=== PATIENT | male | born 1980 | race Caucasian/White ===

== ENCOUNTER 2020-06-11 01:34 | Emergency (ER) | payer OTHER, SELFPAY ==
[2020-06-11 01:55] VITALS: BP 160/90; PULSE 114; RESP 16; TEMP 36.8; O2SAT 95; BMI 27.9
[2020-06-11 02:00] VITALS: BP 160/90; PULSE 116; RESP 18; TEMP 36.8; O2SAT 96
--- NOTE | 2020-06-11 02:43 | CT_ITS ---
EXAMINATION: CT HEAD WITHOUT CONTRAST CLINICAL INFORMATION: Headache COMPARISON: None TECHNIQUE: Contiguous axial imaging was performed from the skull base to vertex without intravenous administration of contrast. This CT examination was performed using dose optimization techniques as appropriate, variously including the following: *Automated exposure control *Adjustment of mA and/or kV according to patient size (this includes techniques or standardized protocols for targeted exams where dose is matched to indication/reason for exam; i.e. extremities or head) *Use of iterative reconstruction technique DLP: 747 mGy-cm FINDINGS: There is no evidence of acute intracranial hemorrhage or territorial infarction. No abnormal mass effect or midline shift is seen. [place] to white matter differentiation is well preserved. No extra-axial fluid collections are identified. The ventricles are normal in size. There is no abnormal attenuation within the brain parenchyma. The osseous structures and soft tissues are normal. The mastoid air cells and visualized portions of the paranasal sinuses are well aerated. CT/CT head/brain wo con IMPRESSION: No acute intracranial pathology.
[2020-06-11] MEDS: ondansetron HCL 4 MG/2 ML VIAL IVPUSH (03:28)
[2020-06-11] MEDS: 0.9 % Sodium Chloride 500 ML 1000 ML IV (03:29)
[2020-06-11 03:30] VITALS: BP 135/72; PULSE 97; RESP 18; TEMP 37.3; O2SAT 93
[2020-06-11 03:39] LABS: MANUAL DIFF FLAG NO
[2020-06-11 03:40] LABS: Basophils Absolute Auto 0.1 X10*3/uL (0.0-0.2); Basophils Percent Auto 0.6 % (0-2); Eosinophils Absolute Auto 0.2 X10*3/uL (0.0-0.4); Eosinophils Percent Auto 1.9 % (0-4); Hemoglobin 15.2 g/dl (14.0-18.0); Imm Gran Abs Auto 0.06 X10*3/uL (0.00-0.03); Imm Gran Pct Auto 0.6 % (0.0-0.4); Lymphocytes Absolute Auto 3.3 X10*3/uL (1.2-4.9); Lymphocytes Percent Auto 31.5 % (20-40); Mean Corpuscular HGB Conc 33.8 g/dl (31.0-36.0); Mean Corpuscular Hemoglobin 29.7 pg (27.0-33.0); Mean Corpuscular Volume 87.9 fL (80-98); Mean Platelet Volume 9.3 fL (9.4-12.4); Monocytes Absolute Auto 0.9 X10*3/uL (0.1-1.2); Monocytes Percent Auto 8.4 % (2-11); Neutrophils Absolute Auto 5.9 X10*3/uL (2.0-8.3); Platelet Count 278 X10*3/uL (160-400); Red Blood Count 5.12 X10*6/uL (4.60-5.80); Red Cell Distribution Width 13.1 % (11.0-16.0); White Blood Count 10.4 X10*3/uL (4.8-10.8)
[2020-06-11 04:23] LABS: Anion Gap 15 (12-20); Blood Urea Nitrogen 13 mg/dL (9-16); Calcium 9.1 mg/dL (8.4-10.2); Carbon Dioxide 24 mmol/L (22-29); Chloride 104 mmol/L (96-108); Creatinine Clr Calc Pharmacy 102.7; Estimated Glomerular Filt Rate > 60; Glucose Random 100 mg/dL (60-115); Potassium 4.4 mmol/l (3.3-5.1); Sodium 139 mmol/L (135-145)
--- NOTE | 2020-06-11 05:21 | ED_ITS ---
HPI - Headache General Chief Complaint: Headache Stated Complaint: HEAD PAIN Time Seen by Provider: 06/11/20 02:43 Source: patient Mode of arrival: ambulatory Limitations: no limitations History of Present Illness HPI Narrative: headache for 2 days, mild nausea, mild dizziness headache is localized into the right side of the head, feel like something popping in right side of the head, described it as 5/10, no photophobia, no neck pain, mild dizziness sometimes, pain is relieved with Tylenol, worsen was watching TV. Patient is intermittent. Related Data Home Medications Medication Instructions Recorded Confirmed No Known Home Meds 06/11/20 06/11/20 Allergies Allergy/AdvReac Type Severity Reaction Status Date / Time No Known Allergies Allergy Mild NONE Verified 06/11/20 02:07 Review of Systems Review of Systems: All other systems are reviewed and are negative Constitutional: Reports as per HPI and Reports no additional constitutional complaints Eyes: Reports as per HPI and Reports no additional eye complaints Reports system reviewed and no additional complaints, except as documented Cardiovascular: Reports as per HPI and Reports no additional cardiovascular complaints Respiratory: Reports as per HPI and Reports no additional respiratory complaints Gastrointestinal: Reports as per HPI and Reports no additional gastrointestinal complaints Genitourinary: Reports no additional female genitourinary complaints Musculoskeletal: Reports no additional musculoskeletal complaints Skin/Breast: Reports system reviewed and no additional complaints, except as docu Psychiatric: Reports no additional psychiatric complaints Endocrine: Reports no additional endocrine complaints Hematologic/Lymphatic: Reports no additional hematologic/lymphatic complaints Allergic/Immunologic: Reports no additional allergic/immunologic complaints Reports system reviewed and no additional complaints, except as documented and Reports Abnormal speech present [facility] Past Medical History Medical History No known health problems Social History Social History Alcohol intake: never Smoked in Last 30 Days: No Use of substances other than those prescribed or required for medical reasons: No Advance Directives: No Advance Directives Information Provided: No Physical Exam Vital Signs: Vital Signs: Vital Signs Temp Pulse Resp BP Pulse Ox 06/11/20 03:30 99.1 F 97 18 135/72 93 06/11/20 02:00 98.3 F 116 H 18 160/90 H 96 06/11/20 01:55 98.3 F 114 H 16 160/90 H 95 Body Mass Index 27.9 vital signs have been reviewed as normal and appeared to be correct. hypertensive. Heart rate normal. Respiration rate normal. Temperature normal. Oxygen saturation normal. Appearance: Alert. Oriented X3. No acute distress. Head: Normal external exam. Normocephalic. Atraumatic. No Watson signs noted. No raccoon eyes noted Eyes: PERRLA. EOMI. Conjunctiva and sclera normal. Eyelids normal. ENT: EAC normal. TM's Normal. Pharynx normal. Uvula midline. Moist mucous membranes. No trismus noted. No drooling noted. No muffled voice noted. Neck: Normal inspection. Neck supple. FROM. No adenopathy. Thyroid Normal. No meningeal signs. No neck mass noted. CVS: Normal heart rate and rhythm. Heart sound normal. No murmurs noted. Pulses normal throughout. Respiratory: No respiratory distress. Painless inspiration. Breath sounds normal. No wheezes/rales/rhonchi noted. Chest nontender. No accessory muscle usage noted or decreased air movement noted. Abdomen: Soft and nontender. Bowel sounds normal in all 4 quadrants. No distention noted. No organomegaly noted. No visible injury noted. Back: No CVA tenderness. Full range of motion noted. Skin: Skin warm and dry. Normal skin color. Normal skin turgor. No rashes/lesions/lacerations noted. Extremities: No lower extremity edema. Extremities exhibit normal range of motion. Extremities nontender. Neuro: Oriented X 3. No motor deficit. No sensory deficit. Reflexes normal. MDM - Headache MDM Narrative Medical decision making narrative: Assessment and plan. 39 years old male otherwise healthy presented with 2 days of right-sided headache, patient emergency department had CT head, IV fluid, Zofran and Tylenol, which relieved the headache patient has 0/10 headache now. Lab Data Attestation: I reviewed the patient's lab results. Result diagrams: 06/11/20 03:26 06/11/20 03:26 Labs: Lab Results 06/11/20 06/11/20 Range/Units 03:26 03:26 WBC 10.4 (4.8-10.8) X10*3/uL RBC 5.12 (4.60-5.80) X10*6/uL Hgb 15.2 (14.0-18.0) g/dl Hct 45.0 (42-52) % MCV 87.9 (80-98) fL MCH 29.7 (27.0-33.0) pg MCHC 33.8 (31.0-36.0) g/dl RDW 13.1 (11.0-16.0) % Plt Count 278 (160-400) X10*3/uL MPV 9.3 L (9.4-12.4) fL Immature Gran % (Auto) 0.6 H (0.0-0.4) % Neut % (Auto) 57.0 (45-73) % Lymph % (Auto) 31.5 (20-40) % [place] % (Auto) 8.4 (2-11) % Eos % (Auto) 1.9 (0-4) % Baso % (Auto) 0.6 (0-2) % Lymph # (Auto) 3.3 (1.2-4.9) X10*3/uL [place] # (Auto) 0.9 (0.1-1.2) X10*3/uL Eos # (Auto) 0.2 (0.0-0.4) X10*3/uL Baso # (Auto) 0.1 (0.0-0.2) X10*3/uL Abs Immat Gran (auto) 0.06 H (0.00-0.03) X10*3/uL Absolute Neuts (auto) 5.9 (2.0-8.3) X10*3/uL Absolute Nucleated RBC 0.000 (0.0-0.012) X10*3/uL Nucleated RBC % (auto) 0.0 (0.0-0.2) /100WBC Sodium 139 (135-145) mmol/L Potassium 4.4 (3.3-5.1) mmol/l Chloride 104 (96-108) mmol/L Carbon Dioxide 24 (22-29) mmol/L Anion Gap 15 (12-20) BUN 13 (9-16) mg/dL Creatinine 1.07 (0.5-1.4) mg/dL Estim Creat Clear Calc 102.7 Estimated GFR > 60 Random Glucose 100 (60-115) mg/dL Calcium 9.1 (8.4-10.2) mg/dL Imaging Data CT scan - head: Radiologist's impression: Unremarkable CT. Discharge Plan Discharge Clinical Impression: Headache Patient Disposition: Home, Self-Care Instructions: Acute Headache (ED) Prescriptions: No Action No Known Home Meds RF: 0 Referrals: Heather Aleman DO [Primary Care Provider] - 2 days Mendy Thorpe MD [Physician] - 2 days
[2020-06-11 05:33] VITALS: BP 131/91; PULSE 93; RESP 18; TEMP 36.3; O2SAT 95
[2020-06-11] MEDS: Acetaminophen 325 MG TABLET 650 MG PO (05:34)
== END 2020-06-11 05:40 | disposition home or self-care (01) ==
PROVIDERS: Emergency Provider Emergency Medicine; PCP Family Medicine
DX: R51.9 Headache, unspecified (principal); R42 Dizziness and giddiness
CPT/HCPCS: 36415; 70450; 80048; 85025; 99284; J2405

== ENCOUNTER 2021-03-29 09:22 | Outpatient (REF) | payer OTHER, SELFPAY ==
--- NOTE | 2021-03-29 09:30 | EMG_ITS ---
This is a 40-year-old man with history of bilateral neck and shoulder pain, sometimes radiating into the forearms with no history of neck injury. He has no other medical problems and takes no medications. PHYSICAL EXAMINATION: On examination, he is alert and oriented with normal intellectual functions. Cranial nerves II through XII are normal. Muscle tone and strength are normal in all 4 extremities. Deep tendon reflexes symmetrical. IMPRESSION: Rule out cervical radiculopathy. Nerve conduction EMG study: Normal electrodiagnostic study of both upper extremities with no evidence of carpal tunnel syndrome or nerve entrapment. EMG of the right C5-T1 innervated muscles including right cervical paraspinal muscles is suggestive of mild chronic cervical radiculopathy in the mid to lower cervical spine. Cervical spine x-ray and MRI of the cervical spine are suggested. MD GRETA Prieto/ABA / [id number]
== END 2021-03-29 09:23 | disposition home or self-care (01) ==
LOC: HO.NEURO 09:22
PROVIDERS: PCP Family Medicine; Visit Provider Family Medicine
DX: M54.2 Cervicalgia (principal)
CPT/HCPCS: 95886; 95913

== ENCOUNTER 2021-04-27 09:37 | Outpatient (REF) | payer OTHER, SELFPAY ==
--- NOTE | ~2021-04-27 | MR_ITS ---
EXAMINATION: MR CERVICAL SPINE WITHOUT CONTRAST CLINICAL INFORMATION: Cervical radiculopathy. Neck pain with right arm pain, numbness, finger numbness or weakness. COMPARISON: None TECHNIQUE: MRI of the cervical spine was obtained using routine sequences without contrast. FINDINGS: VERTEBRAL BODIES AND PARASPINAL SOFT TISSUES: Normal vertebral body alignment. The cervical lordosis is maintained. No acute fracture or subluxation. No loss of vertebral body or intervertebral disc height. The intervertebral discs are well hydrated. No abnormal marrow signal. No evidence of acute osseous injury. No abnormal signal within the visualized cord. The visualized paraspinal soft tissues are unremarkable. CERVICOMEDULLARY JUNCTION AND VISUALIZED POSTERIOR FOSSA: Unremarkable. SPINAL LEVELS: C2-C3: No significant disc bulge. No central canal or neural foraminal stenosis. C3-C4: Small posterior central disc protrusion which completely effaces the ventral thecal sac. Left-sided uncinate spurring with minimal left neural foraminal stenosis. C4-C5: Broad-based disc-osteophyte complex with bilateral uncinate spurring causing minimal left neural foraminal stenosis. C5-C6: Minimal posterior central disc protrusion which partially effaces the ventral thecal sac. No significant neural foraminal stenosis. C6-C7: Right paracentral disc protrusion with posterior annular fissuring which completely effaces the ventral thecal sac. Left-sided uncinate spurring with minimal left neural foraminal stenosis. C7-T1: No significant disc bulge. Left-sided facet arthropathy. No central canal or neural foraminal stenosis. T1-T2: Mild broad-based disc bulge with a superimposed right paracentral disc protrusion which completely effaces the ventral thecal sac and minimally indents the adjacent cord. No significant neural foraminal stenosis. MR/MR cervical spine wo con IMPRESSION: 1. Right paracentral disc protrusion at C6-C7 with posterior annular fissuring which completely effaces the ventral thecal sac. Left-sided uncinate spurring with minimal left neural foraminal stenosis. 2. Mild broad-based disc bulge at T1-T2 with a superimposed right paracentral disc protrusion which completely effaces the ventral thecal sac and minimally indents the adjacent cord. No significant neural foraminal stenosis. 3. Small posterior central disc protrusion at C3-C4 which completely effaces the ventral thecal sac. Left-sided uncinate spurring with minimal left neural foraminal stenosis. 4. Broad-based disc-osteophyte complex at C4-C5 with bilateral uncinate spurring causing minimal left neural foraminal stenosis. 5. Minimal posterior central disc protrusion at C5-C6 which partially effaces the ventral thecal sac. No significant neural foraminal stenosis.
== END 2021-04-27 09:38 | disposition home or self-care (01) ==
LOC: HO.MRI 09:37
PROVIDERS: PCP Family Medicine; Visit Provider Family Medicine
DX: M54.12 Radiculopathy, cervical region (principal)
CPT/HCPCS: 72141

== ENCOUNTER 2021-05-31 12:47 | Emergency (ER) | payer OTHER, SELFPAY ==
--- NOTE | 2021-05-31 | ECG_ITS ---
Test Reason : SYNCOPY Blood Pressure : / mmHG Vent. Rate : 087 BPM Atrial Rate : 087 BPM P-R Int : 170 ms QRS Dur : 082 ms QT Int : 348 ms P-R-T Axes : 033 033 004 degrees QTc Int : 418 ms Normal sinus rhythm Normal ECG When compared with ECG of 31-MAY-2021 14:09, No significant change was found Referred By: Rio oSl Electronically Signed By:HARINDER PACHECO MD
[2021-05-31 13:18] VITALS: BP 110/90; BP 126/84; PULSE 73; PULSE 80; RESP 18; TEMP 36.1; O2SAT 96; O2SAT 99; BMI 27.9
== END 2021-05-31 14:54 | disposition left against medical advice (07) ==
PROVIDERS: Emergency Provider Emergency Medicine
DX: R55 Syncope and collapse (principal); R06.02 Shortness of breath
CPT/HCPCS: 93005; 99283

== ENCOUNTER 2021-08-21 10:15 | Emergency (ER) | payer OTHER, SELFPAY ==
--- NOTE | ~2021-08-21 | XR_ITS ---
EXAMINATION: XR CHEST CLINICAL INFORMATION: Cough and fever COMPARISON: Chest x-ray 08/08/2017 TECHNIQUE: Frontal view of the chest was obtained. FINDINGS: No significant abnormality is noted involving the heart, lungs, mediastinum, bony thorax or soft tissues. XR/XR chest 1V IMPRESSION: Unremarkable chest examination. No change from 2017.
[2021-08-21 10:58] VITALS: BP 128/93; PULSE 93; RESP 18; O2SAT 96; BMI 28.4
[2021-08-21 11:18] LABS: COVID-19 Test Positive (Negative)
--- NOTE | 2021-08-21 11:51 | ED.URI ---
HPI - URI/Sore Throat General Chief Complaint: Upper Respiratory Symptoms Stated Complaint: cough, fever, nausea Time Seen by Provider: 08/21/21 11:45 Source: patient Mode of arrival: ambulatory Limitations: no limitations History of Present Illness MD elicited complaint: cough, sore throat and rhinorrhea Pertinent past history: other (vaccinated x 2) Onset (ago): day(s) (5 days) Consistency: constant Severity: mild Description of mucous: clear Able to tolerate fluids by mouth: Yes Exacerbating factors: swallowing Relieving factors: nothing Associated symptoms: rhinorrhea, sore throat and cough Treatments prior to arrival: none Related Data Home Medications Medication Instructions Recorded Confirmed No Known Home Meds 06/11/20 06/11/20 Allergies Allergy/AdvReac Type Severity Reaction Status Date / Time No Known Allergies Allergy Mild NONE Verified 05/31/21 13:18 Review of Systems Review of Systems: Constitutional : no Fever, positive Chills, positive fatigue, positive Malaise ENT/Mouth : positive sore throat, positive runny nose Eyes: No Discharge Cardiovascular : No Chest Pain, No SOB Respiratory : pos Cough, No Sputum Gastrointestinal : No Nausea, No Vomiting, No Diarrhea Genitourinary : No Dysuria, No Urinary Frequency Musculoskeletal : positive Myalgia Skin : No rash Neuro : No Headache PMFSH Past Medical History Attestation statement: The following information was validated with the patient. Medical History No known health problems Social History Social History Alcohol intake: never Patient Tobacco Use Status: Never used Tobacco Advance Directives: No Advance Directives Information Provided: No Physical Exam Vital Signs: Vital Signs: Last Vital Signs Pulse 93 08/21/21 10:58 Resp 18 08/21/21 10:58 BP 128/93 H 08/21/21 10:58 Pulse Ox 96 08/21/21 10:58 BMI result Body Mass Index 28.4 Appearance: Alert. Oriented X3. No acute distress. Eyes: Pupils equal, round and reactive to light. ENT: Pharynx normal - no redness, no exudates, uvula midline Neck: Normal inspection. Neck supple. CVS: Normal heart rate and rhythm. Pulses normal. Respiratory: No respiratory distress. Breath sounds normal. Abdomen: Soft and non-tender. Skin: Skin warm and dry. Normal skin color. Extremities: No lower extremity edema. Neuro: Oriented X 3. No motor deficit. No sensory deficit. Course Course Course Narrative: vaccinated x 2, no medical problems would not require Mab at this time given [facility] stating lack of supplies MDM - URI/Sore Throat MDM Narrative Medical decision making narrative: 41 yo male no PMH here with vaccine x 2 c/o sore throat and cough x 2 days he is not toxic, clear lungs 96% on RA. His throat appears normal no signs of GAS pharyngitis or deeper space infection at this time likely COVID will test and send home with precautions. Lab Data Labs: Lab Results 08/21/21 Range/Units 11:03 COVID-19 (JESSIKA) Positive A (Negative) COVID-19 Clin Com See Note Discharge Plan Discharge Clinical Impression: COVID-19 Patient Disposition: Home, Self-Care Instructions: COVID-19 (Coronavirus Disease 2019) (ED) Additional Instructions: return to ED for any worsening symptoms or concerns monitor your breathing if you are so short of breath you cannot walk to your bathroom please seek medical care quarantine, wear a mask, protect others Prescriptions: No Action No Known Home Meds RF: 0 Stand Alone Forms: Work/School Release
--- NOTE | 2021-08-21 12:49 | PC.NURSE ---
PT EVALUATED BY DR CHAVES. PT AWAKE, ALERT AND ORIENTED X 3. SKIN WARM AND DRY. RESP UNLABORED. DENIES N/V. TALKING ON PHONE. NO ACUTE DISTRESS.
== END 2021-08-21 12:51 | disposition home or self-care (01) ==
PROVIDERS: Emergency Provider Emergency Medicine; PCP Family Medicine
DX: U07.1 COVID-19 (principal)
CPT/HCPCS: 36415; 71045; 87635; 99282; 99283

== ENCOUNTER 2021-10-05 08:59 | Emergency (ER) | payer OTHER, SELFPAY ==
--- NOTE | ~2021-10-05 | CT_ITS ---
EXAMINATION: CT BRAIN, CT LUMBAR SPINE AND CT CERVICAL SPINE. CLINICAL INFORMATION: Fall and hit head: COMPARISON: None TECHNIQUE: Axial 5 mm thin sagittal and coronal reformatted 2 mm thin coronal and sagittal images of brain were obtained. 3 m thin and reformatted 2 mm thin sagittal coronal images of cervical spine were obtained. Lastly 2 mm thin axial and reformatted 2 mm thin sagittal and coronal images of lumbar spine were obtained. DLP 2141 FINDINGS: BRAIN: There is no acute intra-axial, extra-axial bleed, masses or midline shift. There is no acute infarction in evolution. There is no edema. The brush to white matter differentiation is within normal limits. The lateral ventricles are symmetrical in size and configuration without enlargement. Bone windows reveal no calvarial abnormality. There is no scalp abnormality. Bilateral paranasal sinuses and mastoid air cells are well-aerated. CERVICAL SPINE: On sagittal reconstructed images there is maintained cervical lordosis. The vertebral heights, alignment and disc heights are normal. The craniovertebral junction and the C1-C2 alignment is normal. No visible acute fracture, dislocation or subluxation seen. The prevertebral and the paravertebral soft tissues are normal. LUMBAR SPINE: On the sagittal reconstructed images the lumbar lordosis is maintained normal. The vertebral heights, alignment and disc heights are normal. No visible acute fracture, dislocation or lytic process seen. The paravertebral soft tissues are normal. There is no evidence of disc bulge, herniation or spinal canal stenosis. No aggressive lytic or sclerotic process seen. SI joints are symmetrical and normal. The paravertebral soft tissues are normal. CT/CT head/brain wo con IMPRESSION: Unremarkable CT brain exam. No acute fracture or dislocation cervical spine or lumbar spine.
--- NOTE | ~2021-10-05 | CT_ITS ---
EXAMINATION: CT BRAIN, CT LUMBAR SPINE AND CT CERVICAL SPINE. CLINICAL INFORMATION: Fall and hit head: COMPARISON: None TECHNIQUE: Axial 5 mm thin sagittal and coronal reformatted 2 mm thin coronal and sagittal images of brain were obtained. 3 m thin and reformatted 2 mm thin sagittal coronal images of cervical spine were obtained. Lastly 2 mm thin axial and reformatted 2 mm thin sagittal and coronal images of lumbar spine were obtained. DLP 2144 FINDINGS: BRAIN: There is no acute intra-axial, extra-axial bleed, masses or midline shift. There is no acute infarction in evolution. There is no edema. The brush to white matter differentiation is within normal limits. The lateral ventricles are symmetrical in size and configuration without enlargement. Bone windows reveal no calvarial abnormality. There is no scalp abnormality. Bilateral paranasal sinuses and mastoid air cells are well-aerated. CERVICAL SPINE: On sagittal reconstructed images there is maintained cervical lordosis. The vertebral heights, alignment and disc heights are normal. The craniovertebral junction and the C1-C2 alignment is normal. No visible acute fracture, dislocation or subluxation seen. The prevertebral and the paravertebral soft tissues are normal. LUMBAR SPINE: On the sagittal reconstructed images the lumbar lordosis is maintained normal. The vertebral heights, alignment and disc heights are normal. No visible acute fracture, dislocation or lytic process seen. The paravertebral soft tissues are normal. There is no evidence of disc bulge, herniation or spinal canal stenosis. No aggressive lytic or sclerotic process seen. SI joints are symmetrical and normal. The paravertebral soft tissues are normal. CT/CT cervical spine wo con IMPRESSION: Unremarkable CT brain exam. No acute fracture or dislocation cervical spine or lumbar spine.
[2021-10-05 09:07] VITALS: BP 140/80; BP 142/90; PULSE 100; PULSE 95; RESP 16; TEMP 36.8; O2SAT 96; BMI 28.7
[2021-10-05] MEDS: Acetaminophen 325 MG TABLET 975 MG PO (09:49)
[2021-10-05] MEDS: predniSONE 20 MG TABLET 60 MG PO (09:49)
--- NOTE | 2021-10-05 09:51 | ED.GENADULT ---
HPI - General Adult General Chief complaint: General Medical Stated complaint: SLIP AND FALL ON ICE LAST NIGHT,L LEG/HEAD PAIN Time Seen by Provider: 10/05/21 09:33 Source: patient Mode of arrival: ambulatory Limitations: no limitations History of Present Illness HPI narrative: 41-year-old male presents to ED for posterior head pain and lower back pain. Patient states yesterday while walking outside he slipped on black ice and fell onto his back and head. Patient denies any loss of consciousness. Patient states since incident no chest pain, abdominal pain, shortness of breath, rectal bleeding, bloody urine, or vomiting blood. Patient is not on any blood thinners. Related Data Previous Rx's Medication Instructions Recorded cyclobenzaprine 10 mg tablet 10 mg PO TID PRN #18 tab 10/05/21 naproxen 500 mg tablet 500 mg PO BID PRN 10 Days #20 tab 10/05/21 Allergies Allergy/AdvReac Type Severity Reaction Status Date / Time No Known Allergies Allergy Mild NONE Verified 05/31/21 13:18 Review of Systems Review of Systems: Low back pain hitting head Yes all other systems are reviewed and are negative [facility] Past Medical History Medical History No known health problems Social History Social History Alcohol intake: never Patient Tobacco Use Status: Never used Tobacco Advance Directives: No Advance Directives Information Provided: No Physical Exam ED Vital Signs: Vital Signs - 24 hr 10/05/21 09:07 Temperature 98.2 F Pulse Rate 95 Respiratory Rate 16 Blood Pressure 142/90 H Pulse Oximetry 96 BMI result Body Mass Index 28.7 Const General: cooperative, healthy appearing and acute distress (Low back pain) moderate Orientation/consciousness: patient oriented x3 HENMT Head: Yes normal to inspection, Yes No palpable skull fracture present, Yes normocephalic and Yes atraumatic Head images: 1. Tenderness on palpation. Negative for ecchymosis, laceration, hematoma. Negative for crepitus Eyes General: appearance normal, both eyes and all related structures Neck Neck: Yes normal visual inspection, Yes full ROM, Yes no lymphadenopathy, Yes no meningeal signs, Yes trachea midline, Yes supple, No anterior neck swelling and No tender Chest Chest palpation & inspection: normal inspection of the chest and normal palpation of entire chest wall Resp Effort & Inspection: normal respiratory effort and able to speak in complete sentences Auscultation: clear to auscultation bilaterally Cardio Jugular venous distension: no JVD Heart sounds: S1 normal heart sound present and S2 normal heart sound present GI Inspection: Yes normal to inspection and No abdominal wall ecchymosis Palpation (GI): Soft to palpation, not firm, nontender, no guarding and not rigid General: No CVA tenderness and Yes no CVA tenderness Back/Spine/Pelvis Back: no CVA tenderness, No CVA tenderness and back tenderness (lumbar spine) Skin General skin exam: no rashes or lesions noted and elasticity normal Neuro General: patient oriented x3, gait normal and no meningeal signs Cranial nerves: Yes CN's II-XII intact bilaterally Extrem General: Yes normal to inspection and Yes full ROM Psych Appearance: grossly normal, well kempt and not disheveled Course Course Course Narrative: Patient sent for images. Patient given Tylenol and steroids. Reevaluation(s) Reevaluation #1: Images came back normal patient to be discharged Time: 11:44 Medical Decision Making [facility] Narrative Medical decision making narrative: Contusion Discharge Plan Discharge Clinical Impression: Contusion, Back pain Patient Disposition: Home, Self-Care Instructions: Contusion in Adults (ED), Back Pain (ED) Additional Instructions: Images came back all normal and negative for any life-threatening injuries. Recommend rest, and ice on lower back. Return to the ED for any worsening pain, urinary/bowel incontinence, severe back pain, headache, dizziness, nausea, vomiting, chest pain, shortness of breath, rectal bleeding, vomiting blood, abdominal pain or any other concerning symptoms. Please follow-up with primary care provider Prescriptions: New naproxen 500 mg tablet 500 mg PO BID PRN (Reason: pain) 10 Days Qty: 20 0RF cyclobenzaprine 10 mg tablet 10 mg PO TID PRN (Reason: muscle spasm) Qty: 18 0RF Rx Instructions: side effect is drowsiness. Do not take at work or while driving. Stand Alone Forms: Work/School Release Interventions: ED Discharge Assessment Last Done: 10/05/21 12:42 Discharge Date/Time: 10/05/21 12:44 Print Language: Citizen Of [place]
[2021-10-05] MEDS: oxyCODONE HCl Immed Release 5 MG TABLET PO (11:29)
[2021-10-05] MEDS: Ketorolac Tromethamine 30 MG/ML VIAL IM (12:36)
== END 2021-10-05 12:44 | disposition home or self-care (01) ==
PROVIDERS: Emergency Provider Emergency Medicine; PCP Family Medicine
DX: S00.03XA Contusion of scalp, initial encounter (principal); W00.0XXA Fall on same level due to ice and snow, initial encounter; M54.50 Low back pain, unspecified; Y93.01 Activity, walking, marching and hiking; Y92.410 Unspecified street and highway as the place of occurrence of the external cause; Y99.9 Unspecified external cause status
CPT/HCPCS: 70450; 72125; 72131; 96372; 99284; J1885

== ENCOUNTER 2022-01-09 11:25 | Outpatient (REF) | payer OTHER, SELFPAY ==
[2022-01-09 12:54] LABS: Hematocrit 49.8 % (42.0-52.0); Hemoglobin 16.3 g/dl (14.0-18.0); Mean Corpuscular HGB Conc 32.7 g/dl (31.0-36.0); Mean Corpuscular Hemoglobin 28.7 pg (27.0-33.0); Mean Corpuscular Volume 87.7 fL (80.0-98.0); Mean Platelet Volume 9.5 fL (9.4-12.4); Platelet Count 304 X10*3/uL (160-400); Red Blood Count 5.68 X10*6/uL (4.60-5.80); Red Cell Distribution Width 13.1 % (11.0-16.0); White Blood Count 6.7 X10*3/uL (4.8-10.8)
[2022-01-09 13:13] LABS: Estimated Average Glucose 123 mg/dL; Hemoglobin A1c % 5.9 %
[2022-01-09 13:36] LABS: Alanine Aminotransferase 59 U/L (0-40); Albumin Level 4.4 g/dL (3.5-5.0); Alkaline Phosphatase 77 U/L (39-117); Anion Gap 12 (12-20); Aspartate Amino Transferase 41 U/L (5-37); Bilirubin Direct 0.2 mg/dL (0.0-0.5); Bilirubin Total 0.5 mg/dL (0.0-1.0); Blood Urea Nitrogen 10 mg/dL (9-16); Calcium 10.3 mg/dL (8.4-10.2); Carbon Dioxide 25 mmol/L (22-29); Chloride 107 mmol/L (96-108); Cholesterol 164 mg/dL; Estimated Glomerular Filt Rate > 60; Glucose Random 112 mg/dL (60-115); HDL Cholesterol 35 mg/dL; LDL Cholesterol Calculated 96 mg/dl; Potassium 4.4 mmol/L (3.3-5.1); Sodium 140 mmol/L (135-145); Total Protein 7.7 g/dL (6.5-8.0); Triglycerides 167 mg/dL
[2022-01-09 13:52] LABS: Free T4 (Free Thyroxine) 1.02 ng/dL (0.71-1.85); Thyroid Stimulating Hormone 0.52 uIU/mL (0.32-4.0); Vitamin D 25-OH Total 17.6 ng/mL (>30)
[2022-01-09 16:34] LABS: CT PCR NOT DETECTED (Not Detect.); NG PCR NOT DETECTED (Not Detect.)
[2022-01-10 06:48] LABS: HIV AB/AG Nonreactive (Nonreactive); HIV Num 1 0.09 S/CO (0.00-0.99)
[2022-01-10 06:49] LABS: ~HepC Num1 0.08 S/CO (0.00-0.79); ~Hepatitis C Antibody Nonreactive (Nonreactive)
[2022-01-10 12:21] LABS: Alpha Fetoprotein 3.6 ng/mL (<6.1)
== END 2022-01-09 11:26 | disposition home or self-care (01) ==
LOC: HO.LAB 11:25
PROVIDERS: PCP Family Medicine; Visit Provider Family Medicine
DX: Z11.4 Encounter for screening for human immunodeficiency virus [HIV] (principal); Z11.3 Encounter for screening for infections with a predominantly sexual mode of transmission; K76.0 Fatty (change of) liver, not elsewhere classified; R73.03 Prediabetes
CPT/HCPCS: 80048; 80061; 80076; 82105; 82306; 83036; 84439; 84443; 85027; 86803; 87389; 87491; 87591

== ENCOUNTER 2022-03-20 08:42 | Outpatient (REF) | payer OTHER, SELFPAY ==
--- NOTE | ~2022-03-20 | US_ITS ---
EXAMINATION: US ABDOMEN COMPLETE CLINICAL INFORMATION: Fatty liver. COMPARISON: Ultrasound abdomen complete 05/28/2017. TECHNIQUE: Real-time imaging of the abdominal viscera. Technically limited study secondary to body habitus. FINDINGS: PANCREAS: The pancreas is homogeneous in echotexture and appears unremarkable. ABDOMINAL AORTA: The proximal and midabdominal aorta is obscured by overlying gas. The distal abdominal aorta is normal caliber. INFERIOR VENA CAVA: Visualized portions are normal. LIVER: Slightly limited due to overlying gas The liver is normal in size. The liver contour is normal. There is increased liver echogenicity No focal hepatic lesion. There is no intrahepatic biliary duct dilatation seen. GALLBLADDER: Surgically absent. COMMON BILE DUCT: Normal in caliber measuring 0.5 cm in diameter. RIGHT KIDNEY: Normal. No hydronephrosis. No renal calculi or focal parenchymal lesions. The kidney measures 12.1 cm in maximum dimension. LEFT KIDNEY: There are 2 anechoic cysts in the upper pole measuring 1.5 x 1.3 x 1.5 cm and 0.9 x 1.0 x 0.9 cm. No hydronephrosis or renal calculi. The kidney measures 11.7 cm in maximum dimension. SPLEEN: Normal. The spleen measures 10.2 cm in maximum dimension. FREE FLUID: None. US/US abdomen complete IMPRESSION: Anechoic cysts in the upper pole left kidney. The distal abdominal aorta is normal caliber. Proximal and midabdominal aorta not visualized. Diffuse hepatic steatosis, similar to previous study 05/28/2017. Previously visualized echogenic calculi right kidney are not visualized at this time.
== END 2022-03-20 08:43 | disposition home or self-care (01) ==
LOC: HO.US 08:42
PROVIDERS: Visit Provider Family Medicine
DX: K76.0 Fatty (change of) liver, not elsewhere classified (principal)
CPT/HCPCS: 76700

== ENCOUNTER 2023-08-05 08:55 | Outpatient (REF) | payer OTHER, SELFPAY ==
[2023-08-05 11:27] LABS: MANUAL DIFF FLAG NO
[2023-08-05 11:35] LABS: Basophils Absolute Auto 0.1 X10*3/uL (0.0-0.2); Basophils Percent Auto 1.1 % (0-2); Eosinophils Absolute Auto 0.2 X10*3/uL (0.0-0.4); Eosinophils Percent Auto 2.3 % (0-4); Hematocrit 49.9 % (42.0-52.0); Hemoglobin 16.6 g/dl (14.0-18.0); Imm Gran Abs Auto 0.05 X10*3/uL (0.00-0.03); Imm Gran Pct Auto 0.5 % (0.0-0.4); Lymphocytes Absolute Auto 4.2 X10*3/uL (1.2-4.9); Lymphocytes Percent Auto 45.1 % (20-40); Mean Corpuscular HGB Conc 33.3 g/dl (31.0-36.0); Mean Corpuscular Hemoglobin 29.5 pg (27.0-33.0); Mean Corpuscular Volume 88.8 fL (80.0-98.0); Mean Platelet Volume 10.1 fL (9.4-12.4); Monocytes Absolute Auto 0.8 X10*3/uL (0.1-1.2); Monocytes Percent Auto 8.8 % (2-11); Neutrophils Absolute Auto 3.9 x10*3/uL (2.0-8.3); Neutrophils Percent Auto 42.2 % (45-73); Platelet Count 300 X10*3/uL (160-400); Red Blood Count 5.62 X10*6/uL (4.60-5.80); Red Cell Distribution Width 13.2 % (11.0-16.0); White Blood Count 9.3 X10*3/uL (4.8-10.8)
[2023-08-05 11:52] LABS: Estimated Average Glucose 120 mg/dL; Hemoglobin A1c % 5.8 % (<6.0)
[2023-08-05 12:12] LABS: Alanine Aminotransferase 64 U/L (0-40); Albumin Level 4.6 g/dL (3.5-5.0); Alkaline Phosphatase 71 U/L (39-117); Anion Gap 14 (12-20); Aspartate Amino Transferase 36 U/L (5-37); Bilirubin Direct 0.2 mg/dL (0.0-0.5); Bilirubin Total 0.7 mg/dL (0.0-1.0); Blood Urea Nitrogen 13 mg/dL (9-16); Carbon Dioxide 24 mmol/L (22-29); Chloride 105 mmol/L (96-108); Cholesterol 156 mg/dL (<200); Estimated Glomerular Filt Rate > 60; Glucose Random 110 mg/dL (60-115); HDL Cholesterol 41 mg/dL (>40); HIV AB/AG Nonreactive (Nonreactive); HIV Num 1 0.08 S/CO (0.00-0.99); LDL Cholesterol Calculated 91 mg/dL (<100); Potassium 3.8 mmol/L (3.3-5.1); Sodium 139 mmol/L (135-145); Syphilis Screen Nonreactive (Nonreactive); Total Protein 7.8 g/dL (6.5-8.0); Triglycerides 122 mg/dL (<150); ~HepC Num1 0.11 S/CO (0.00-0.79); ~Hepatitis C Antibody Nonreactive (Nonreactive)
[2023-08-05 12:36] LABS: Free T4 (Free Thyroxine) 1.08 ng/dL (0.71-1.85); Thyroid Stimulating Hormone 1.25 uIU/mL (0.32-4.0); Vitamin D 25-OH Total 46.9 ng/mL (>30)
[2023-08-05 15:41] LABS: CT PCR NOT DETECTED (Not Detect.); NG PCR NOT DETECTED (Not Detect.)
[2023-08-06 13:09] LABS: Alpha Fetoprotein 4.4 ng/mL (<6.1)
== END 2023-08-05 08:56 | disposition home or self-care (01) ==
LOC: HO.HHCL 08:55
PROVIDERS: Visit Provider Family Medicine
DX: Z00.00 Encounter for general adult medical examination without abnormal findings (principal); R73.03 Prediabetes; Z11.3 Encounter for screening for infections with a predominantly sexual mode of transmission; Z11.8 Encounter for screening for other infectious and parasitic diseases; Z13.29 Encounter for screening for other suspected endocrine disorder; Z11.59 Encounter for screening for other viral diseases; Z11.4 Encounter for screening for human immunodeficiency virus [HIV]; K76.0 Fatty (change of) liver, not elsewhere classified
CPT/HCPCS: 0353U; 80048; 80061; 80076; 82105; 82306; 83036; 84439; 84443; 85025; 86780; 86803; 87389

== ENCOUNTER 2024-04-17 10:36 | Outpatient (REF) | payer OTHER, SELFPAY ==
[2024-04-17 12:14] LABS: Creatinine Urine 198.12 mg/dL
[2024-04-17 13:37] LABS: Hematocrit 49.5 % (42.0-52.0); Hemoglobin 16.2 g/dl (14.0-18.0); Mean Corpuscular HGB Conc 32.7 g/dl (31.0-36.0); Mean Corpuscular Hemoglobin 29.1 pg (27.0-33.0); Mean Corpuscular Volume 88.9 fL (80.0-98.0); Mean Platelet Volume 9.7 fL (9.4-12.4); Platelet Count 292 X10*3/uL (160-400); Red Blood Count 5.57 X10*6/uL (4.60-5.80)
[2024-04-17 14:01] LABS: Estimated Average Glucose 120 mg/dL; Hemoglobin A1c % 5.8 % (<6.0)
[2024-04-17 14:23] LABS: Alanine Aminotransferase 49 U/L (0-40); Albumin Level 4.2 g/dL (3.5-5.0); Alkaline Phosphatase 77 U/L (39-117); Anion Gap 10 (12-20); Aspartate Amino Transferase 27 U/L (5-37); Bilirubin Direct 0.2 mg/dL (0.0-0.5); Bilirubin Total 0.5 mg/dL (0.0-1.0); Blood Urea Nitrogen 8 mg/dL (9-16); Calcium 9.6 mg/dL (8.4-10.2); Carbon Dioxide 29 mmol/L (22-29); Chloride 105 mmol/L (96-108); Cholesterol 149 mg/dL (<200); Estimated Glomerular Filt Rate > 60; Glucose Random 125 mg/dL (60-115); HDL Cholesterol 37 mg/dL (>40); LDL Cholesterol Calculated 84 mg/dL (<100); Potassium 3.7 mmol/L (3.3-5.1); Sodium 140 mmol/L (135-145); Total Protein 7.1 g/dL (6.5-8.0); Triglycerides 140 mg/dL (<150)
[2024-04-17 14:42] LABS: CT PCR NOT DETECTED (Not Detect.); NG PCR NOT DETECTED (Not Detect.)
[2024-04-17 14:45] LABS: Free T4 (Free Thyroxine) 0.87 ng/dL (0.71-1.85); Thyroid Stimulating Hormone 1.65 uIU/mL (0.32-4.0); Vitamin D 25-OH Total 44.3 ng/mL (>30)
[2024-04-18 04:13] LABS: HBS Num1 22.67 mIU/mL (0-7.99); HBsAGNum1 0.35 S/CO (0.00-0.99); HIV AB/AG Nonreactive (Nonreactive); HIV Num 1 0.06 S/CO (0.00-0.99); Hepatitis B Surface Antigen Negative (Negative); ~HepC Num1 0.11 S/CO (0.00-0.79); ~Hepatitis B Surface Antibody REACTIVE (Nonreactive); ~Hepatitis C Antibody Nonreactive (Nonreactive)
[2024-04-21 12:09] LABS: RPR Rapid Plasma Reagin NON-REACTIVE (NON-REACTIVE)
[2024-04-21 13:13] LABS: Alpha Fetoprotein 3.6 ng/mL (<6.1)
== END 2024-04-17 10:37 | disposition home or self-care (01) ==
LOC: HO.HHCL 10:36
PROVIDERS: Visit Provider Family Medicine
DX: Z00.00 Encounter for general adult medical examination without abnormal findings (principal); R73.03 Prediabetes; K76.0 Fatty (change of) liver, not elsewhere classified; F20.0 Paranoid schizophrenia; J30.9 Allergic rhinitis, unspecified; K21.9 Gastro-esophageal reflux disease without esophagitis; R53.83 Other fatigue; G47.30 Sleep apnea, unspecified
CPT/HCPCS: 36415; 80048; 80061; 80076; 82043; 82105; 82306; 82570; 83036; 84439; 84443; 85027; 86592; 86706; 86803; 87340; 87389; 87491; 87591

== ENCOUNTER → 2024-05-21 13:39 | Outpatient (REF) | payer OTHER, SELFPAY ==
--- NOTE | 2024-05-21 13:43 | CA_ITS ---
Transthoracic Echocardiogram Patient (Last, First, Middle): Brian Hager, Gender: Male Date of : 1980 Age: 43 Procedure Date: 05/21/2024 Procedure Type: Transthoracic Echocardiogram Location: OP Height: 180. cm Weight: 97.52 kg BSA: 2.17 m2 Heart Rate: 78 bpm BP: 125 / 75 mmHg [employer] Manager: INDY Powell MD: Heather Aleman DO Farm Owner Operator: Pan Ware MD Symptoms: fatigue Study Quality: Fair ECG Rhythm: Sinus Conclusions: - 1. Normal LV ejection fraction 55-60% with normal filling pattern 2. Cardiac valvular Doppler was within normal limits Findings Left Ventricle Normal left ventricular size, thickness, and systolic function. The visually estimated ejection fraction is between 55-60%. Spectral Doppler is indicative of a normal filling pattern. Right Ventricle The right ventricle was not well visualized. There is normal right ventricular systolic function. Atria The left atrium is normal in size. Interatrial shunt cannot be excluded. The right atrium was not well visualized. Aortic Valve The aortic valve structure and function is likely normal. There is no aortic valve stenosis. There is no aortic valve regurgitation. Mitral Valve Likely normal mitral valve structure and function. There is trace mitral valve regurgitation. There is no mitral valve stenosis. Pulmonic Valve The pulmonic valve was not well visualized. Tricuspid Valve Likely normal tricuspid valve structure and function. There is trace tricuspid valve regurgitation. The right ventricular systolic pressure is not calculated. Indeterminate right atrial pressure. Great Vessels All visible segments of the aorta are normal in size. The pulmonary artery was not well visualized. Venous The inferior vena cava was not well visualized. Pericardium/Pleural The pericardium was not well visualized. Prior Study Comparison No prior study available for comparison. Measurements 2D Linear Measurements IVSd: 1.25 0.6-0.9/0.6-1.0 cm LVIDd: 4.06 3.9-5.3/4.2-5.9 cm LVIDd Index: 1.87 2.4-3.2/2.2-3.1 cm/m2 LVIDs: 2.42 2.0-3.6 cm LVPWd: 1.18 0.7-1.1 cm LA Diam: 3.40 2.7-3.8/3.0-4.0 cm LAIDs Index: 1.57 1.5-2.3 cm/m2 LV Mass: 214.69 67-162/88-224 g LV Mass Index: 98.94 43-95/49-115 g/m2 LVOT Diam: 2.00 3.0+(-)1.3 cm 2D Systolic Function EF 4C: 56.10 >55% EF 2C: 53.20 >55% EF BiP: 54.60 >55% Mitral Valve MV Pk E: 0.65 MV PK A: 0.54 MV Decel Time: 202.00 E/A: 1.20 E'Lateral: 7.83 E'Medial: 5.77 E/E' Med: 11.30 E/E' Lat: 8.30 PHT: 59.00 MVA PHT: 3.73 Decel [place]: 3.22 Aortic Valve AoV Pk Efren: 1.13 AoV Mn Efren: 0.81 AoV VTI: 0.23 AoV Pk Grad: 5.00 Aov Mn Grad: 3.00 YESI Cont.VTI: 2.50 LVOT LVOT Pk Efren: 0.86 LVOT Mn Efren: 0.60 LVOT VTI: 0.18 LVOT Pk Grad: 3.00 LVOT Mn Grad: 2.00 LVOT Diam: 2.00 LVOT Area: 3.14 Diastolic Function MV Pk E: 0.65 MV Pk A: 0.54 E/A: 1.20 E'Medial: 5.77 E/E' Med: 11.30 E' Laterial: 7.83 E/E' Lat: 8.30 Right Ventricle TAPSE (mm): 20.30 TVS' Efren: 12.20 Great Vessels Aorta Sinus of Valsalva: 3.40 2.0-3.5 cm Ao Asc: 3.90 2.1-3.4 cm Pulmonary Valve PV Pk Efren: 0.92 Peak PV Grad: 3.00 Updated in Other Vendor System with Status of Final Pan Ware MD electronically signed on 05/21/2024 2:56:12 PM with status of Final
== END ==
LOC: HO.CARD 13:39
PROVIDERS: PCP Family Medicine; Visit Provider Family Medicine
DX: R53.83 Other fatigue (principal)
CPT/HCPCS: 93306

== ENCOUNTER → 2024-05-21 13:43 | Outpatient (BNV) | payer OTHER, SELFPAY | PROVIDERS: PCP Family Medicine; Visit Provider Internal Medicine Cardiovascular Disease | DX: R53.82 Chronic fatigue, unspecified (principal) | CPT/HCPCS: 93306 ==